=== PATIENT | female | born 1980 | race Asian ===

== ENCOUNTER 2020-04-04 13:56 | Outpatient (RCR) | payer OTHER | END 2020-04-19 | disposition home or self-care (01) | LOC: WSOH | DX: M65.4 Radial styloid tenosynovitis [de Quervain] (principal); Y99.0 Civilian activity done for income or pay | CPT/HCPCS: A6549; J3301 ==

== ENCOUNTER 2020-05-28 14:35 | Outpatient (RCR) | payer OTHER | END 2020-08-05 | disposition home or self-care (01) | LOC: WSOH | DX: M65.4 Radial styloid tenosynovitis [de Quervain] (principal); Y99.0 Civilian activity done for income or pay ==